=== PATIENT | female | born 1965 | race Caucasian/White ===

== ENCOUNTER → 2016-06-21 | Outpatient (CLI) | payer BC ==
--- NOTE | 2016-06-21 13:19 | USB ---
Reason for exam: clinical finding. History: Patient had first child at age 30. Family history of breast cancer in maternal aunt at age 70 and breast cancer in paternal aunt at age 80. Cyst aspiration, January 23, 2010. Cyst aspiration of the left breast, April 2009. Reductions of both breasts, 2004. 2 core biopsies. Excisional biopsy of the left breast. Took hormonal contraceptives for 10 years. Indicated problem(s): palpable abnormality in the left breast. Physical Findings: Nurse Summary: Patient states Dr. Flood did aspiration in office 6 days ago, patient presents with palpable x 2 on left and wide spread brusing to left breast painful to touch (nurse yakelin). US Breast LT Left breast ultrasound including all four quadrants, the retroareolar region and axilla demonstrates a 2mm calcified cyst at 1 o'clock, a 15 x 4 x 12mm lipoma at 3 o'clock, a 24 x 5 x 22mm hematoma fluid collection, small somewhat irregular at BB at 10 o'clock, a 22 x 6 x 17mm lipoma at 11 o'clock and a 18 x 17 x 15mm strongly shadowing, irregular tissue at 2 o'clock, likely reflects scar tissue. These results were verbally communicated with the patient and result sheet given to the patient on 06/21/16. ASSESSMENT: Probably benign, BI-RAD 3 RECOMMENDATION: Ultrasound of the left breast in 3 months. Manage patient on a clinical basis.
== END | disposition home or self-care (01) ==
LOC: RADUSWWP 11:33
PROVIDERS: ATTEND Surgery
DX: N63 Unspecified lump in breast (principal)

== ENCOUNTER → 2016-06-28 | Outpatient (CLI) | payer BC ==
--- NOTE | 2016-06-28 14:04 | MM ---
Reason for exam: follow-up at short interval from prior study. Last mammogram was performed 6 months ago. History: Patient had first child at age 30. Family history of breast cancer in maternal aunt at age 70 and breast cancer in paternal aunt at age 80. Cyst aspiration, January 23, 2010. Cyst aspiration of the left breast, April 2009. Reductions of both breasts, 2004. 2 core biopsies. Excisional biopsy of the left breast. Took hormonal contraceptives for 10 years. Physical Findings: Nurse Summary: 2cm nodule in the left breast at 11 o'clock (nurse mm). MG Diagnostic Mammo LT w CAD CC and MLO view(s) were taken of the left breast. Prior study comparison: January 05, 2016, bilateral MG 3d screening mammo w/cad. November 18, 2014, bilateral MG screening mammo w CAD. There are scattered fibroglandular densities. Density persists at site of prior aspiration. Ultrasound is recommended. These results were verbally communicated with the patient and result sheet given to the patient on 06/28/16. ASSESSMENT: Incomplete: need additional imaging evaluation, BI-RAD 0 RECOMMENDATION: Ultrasound of the left breast. Manage patient on a clinical basis.
--- NOTE | 2016-06-28 14:07 | USB ---
Reason for exam: additional evaluation requested from abnormal screening. History: Patient had first child at age 30. Family history of breast cancer in maternal aunt at age 70 and breast cancer in paternal aunt at age 80. Cyst aspiration, January 23, 2010. Cyst aspiration of the left breast, April 2009. Reductions of both breasts, 2004. 2 core biopsies. Excisional biopsy of the left breast. Took hormonal contraceptives for 10 years. US Breast Limited LT Left breast ultrasound demonstratates a 2.0 x 0.8 x 2.0cm oval lesion at 10 o'clock seen on previous, probable hematoma and a scar at 2 o'clock with shadowing, seen on previous, consistent with scarring. Undersigned was present for the examination. These results were verbally communicated with the patient and result sheet given to the patient on 06/28/16. ASSESSMENT: Probably benign, BI-RAD 3 RECOMMENDATION: Ultrasound of the left breast in 3 months. Manage patient on a clinical basis.
== END | disposition home or self-care (01) ==
LOC: RADMAMWWP 12:54
PROVIDERS: ATTEND Surgery
DX: R92.8 Other abnormal and inconclusive findings on diagnostic imaging of breast (principal)
CPT/HCPCS: 76642; G0206

== ENCOUNTER → 2016-11-26 | Outpatient (CLI) | payer BC ==
--- NOTE | 2016-11-26 12:08 | USB ---
Reason for exam: follow-up at short interval from prior study. History: Patient had first child at age 30. Family history of breast cancer in maternal aunt at age 70 and breast cancer in paternal aunt at age 80. Cyst aspiration, January 23, 2010. Cyst aspiration of the left breast, April 2009. Reductions of both breasts, 2004. 2 core biopsies. Excisional biopsy of the left breast. Took hormonal contraceptives for 10 years. Physical Findings: Nurse Summary: 1cm movable nodule in the left breast at 11 o'clock (nurse dw). US Breast LT Left breast ultrasound includes all four quadrants, the retroareolar region and axilla. Finding demonstrates a 2cm calcified cyst at 1 o'clock, a scar site from prior incisional , strong shadows at 2 o'clock, a 1.2 x 0.4 x 1.6cm oval, solid lipoma at 3 o'clock and a 2.2 x 0.7 x 1.8cm oval, solid lipoma at 10 o'clock. These results were verbally communicated with the patient and result sheet given to the patient on 11/26/16. ASSESSMENT: Benign, BI-RAD 2 RECOMMENDATION: Return to routine screening mammogram schedule for both breasts. Back on schedule.
== END | disposition home or self-care (01) ==
LOC: RADUSWWP 10:35
PROVIDERS: ATTEND Surgery
DX: R92.8 Other abnormal and inconclusive findings on diagnostic imaging of breast (principal)

== ENCOUNTER → 2017-06-27 | Outpatient (CLI) | payer BC ==
--- NOTE | 2017-06-30 11:36 | MM ---
Reason for exam: screening (asymptomatic). Last mammogram was performed 1 year ago. History: Patient had first child at age 30. Family history of breast cancer in maternal aunt at age 70 and breast cancer in paternal aunt at age 80. Cyst aspiration of the left breast, 2016. Cyst aspiration, January 23, 2010. Cyst aspiration of the left breast, April 2009. Reductions of both breasts, 2004. 2 core biopsies. Excisional biopsy of the left breast. Took hormonal contraceptives for 10 years. Physical Findings: A clinical breast exam by your physician is recommended on an annual basis and results should be correlated with mammographic findings. MG Screening Mammo w CAD Bilateral CC and MLO view(s) were taken. Prior study comparison: June 28, 2016, left breast MG diagnostic mammo LT w CAD. January 05, 2016, bilateral MG 3d screening mammo w/cad. There are scattered fibroglandular densities. Stable benign calcifications. There is no discrete abnormality. No significant changes when compared with prior studies. ASSESSMENT: Benign, BI-RAD 2 RECOMMENDATION: Routine screening mammogram of both breasts in 1 year.
== END ==
LOC: RADMAMWWP 13:40
PROVIDERS: ATTEND Family Medicine
DX: Z12.31 Encounter for screening mammogram for malignant neoplasm of breast (principal)
CPT/HCPCS: 77067

== ENCOUNTER → 2018-02-24 | Outpatient (CLI) | payer BC ==
[2018-02-24 13:56] VITALS: BP 151/97; PULSE 74; TEMP 98.1; BMI 42.4
--- NOTE | 2018-02-24 14:53 | P.HPOB ---
History of Present Illness H&P Date: 02/24/18 Chief Complaint: The patient is here for her routine gynecologic exam. This is a 52-year-old with an LMP of 2002. The patient is status post OSMAR and unilateral oophorectomy in 2002 for endometriosis. The patient has felt a small left breast lump for a number of years and had seen Dr. Sky Ferguson for this in the past. She believes the lump has gotten larger. Dr. Sky Ferguson had done some type of aspiration procedure in the past. The patient had a benign mammogram on 06/27/2017. Review of Systems Patient is getting about 23 pounds over the last 2 years. She denies respiratory or cardiac problems. GI: she is complaining of rectal and anal pruritus. She states she did have a hard bowel movement that seem to aggravate the anus. She did have a colonoscopy earlier this year. 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 She did have PCOS and endometriosis and his status post OSMAR with unilateral correct me. History of Any Multi-Drug Resistant Organisms: None Reported Past Surgical History: Adenoidectomy, Breast Surgery (Left breast biopsy and bilateral breast reduction surgery), Section (x2), Hysterectomy (OSMAR with unilateral oophorectomy in 2002), Tonsillectomy Additional Past Surgical History / Comment(s): Sinus surgery. Colonoscopy 2012 and 2017. Past Psychological History: No Psychological Hx Reported Smoking Status: Never smoker Past Alcohol Use History: Occasional (2-4 per month) Past Drug Use History: None Reported Additional History: The patient is a and has had a boyfriend. 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 - Past Family History Father Additional Family Medical History / Comment(s): Heart disease Medications and Allergies Home Medications Medication Instructions Recorded Confirmed Type Aspirin PO DAILY 02/24/18 History Ergocalciferol (Vitamin D2) 250ml.bag 02/24/18 History [Vitamin D2] Levothyroxine Sodium [Synthroid] PO DAILY 02/24/18 History Losartan [Cozaar] PO DAILY 02/24/18 History Allergies Allergy/AdvReac Type Severity Reaction Status Date / Time No Known Allergies Allergy Unverified 02/24/18 13:51 Exam Vital Signs Temp Pulse BP 02/24/18 13:54 98.1 F 74 151/97 Intake and Output 02/23/18 02/24/18 02/24/18 22:59 06:59 14:59 Other: Weight 119.295 kg Height 5'6", BMI 42.4. This is a well-developed well-nourished obese white female who is alert and oriented times 3 in no acute distress. HEENT: Within normal limits. NECK: Supple without mass or thyromegaly. CHEST AND LUNGS: Clear to auscultation. HEART: Regular rate and rhythm. BREASTS: there is a lump palpable in the left breast at approximately the 10 o' clock position near the periphery of the breast. This mass measures approximately 1.5 cm. It is on the soft side but not to fluctuant. Is nontender. There is no erythema and no breast dimpling in this area. There are no other palpable breast masses. AXILLARY EXAM: Negative for adenopathy. BACK: Negative for CVA tenderness. ABDOMEN: Soft, obese, nontender, without palpable masses. PELVIC EXAM: External genitalia appears normal. Vagina appears normal. There is no evidence of prolapse. Bimanual examination is negative for mass or tenderness. Bimanual examination is somewhat limited secondary to her size. RECTAL EXAM: Rectovaginal exam is negative for mass or tenderness and is negative for occult blood. There are no significant palpable hemorrhoids noted. EXTREMITIES: Nontender. IMPRESSION: 1. 52 year old menopausal female status post OSMAR and unilateral oophorectomy done for benign reasons with unremarkable gynecologic exam. 2. Left breast mass. Differential diagnosis will include left breast lipoma , fibrocystic changes or other breast neoplasm. 3. Anal pruritus without any significant physical findings at this time. 4. Mild urinary frequency and urgency. PLAN: 1. Pap smears have been discontinued. 2. Self breast awareness was discussed with the patient. 3. Screening mammogram was done on 06/27/2017 and was benign. The patient will be given an appointment with Dr. Sky Ferguson for further evaluation of the breast lump. 4. Anusol HC cream BID to the anus PRN for pruritus. 5. Clean catch urine for urinalysis and urine culture were obtained. 6. The patient will return in one year.
== END | disposition home or self-care (01) ==
LOC: WWCWWP 13:35
PROVIDERS: ATTEND Obstetrics & Gynecology
DX: Z53.9 Procedure and treatment not carried out, unspecified reason (principal)

== ENCOUNTER → 2022-04-22 | Outpatient (CLI) | payer BC ==
[2022-04-22 18:11] LABS: Basophils # (A) 0.04 X 10*3/uL (0.00-0.10); Basophils % (A) 0.8 %; Eosinophils # (A) 0.13 X 10*3/uL (0.04-0.35); Eosinophils % (A) 2.7 %; HCT 43.1 % (37.2-46.3); Immature Grans, Automated 0.2 %; Lymphocytes # (A) 1.92 X 10*3/uL (0.90-5.00); Lymphocytes % (A) 39.6 %; MCH 29.9 pg (27.0-32.0); MCHC 32.5 g/dL (32.0-37.0); MCV 91.9 fL (80.0-97.0); Mean Platelet Volume 10.8 fL (9.5-12.2); Monocytes # (A) 0.36 X 10*3/uL (0.20-1.00); Monocytes % (A) 7.4 %; NRBC Per 100 WBC 0 /100 WBCS (0.0-0.0); Neutrophils # (A) 2.39 X 10*3/uL (1.80-7.70); Neutrophils % (A) 49.3 %; Platelet Count 197 X 10*3/uL (140-440); RBC 4.69 X 10*6/uL (4.10-5.20); RDW 12.2 % (11.5-14.5); WBC 4.85 X 10*3/uL (4.50-10.00)
[2022-04-22 18:44] LABS: ALT 36 U/L (8-44); AST 23 U/L (13-35); African American GFR (CKD) 110.7 (60.0-200.0); Albumin 4.4 g/dL (3.8-4.9); Albumin/Globulin Ratio 1.69 (1.60-3.17); Alkaline Phosphatase 63 U/L (41-126); BUN/Creat Ratio 20.57 Ratio (12.00-20.00); Blood Urea Nitrogen 14.4 mg/dL (9.0-27.0); Calcium 9.4 mg/dL (8.7-10.3); Carbon Dioxide 26.3 mmol/L (20.0-27.5); Chloride 104 mmol/L (96-109); Chol/HDL Ratio 5.26 Ratio; Globulin 2.6 g/dL (1.6-3.3); Glucose 96 mg/dL (70-110); LDL Cholesterol,Calculated 116.8 mg/dL (0.0-131.0); Non-African American GFR(CKD) 95.5 (60.0-200.0); Potassium 4.3 mmol/L (3.5-5.5); Sodium 141 mmol/L (135-145)
== END | disposition home or self-care (01) ==
LOC: LABWHC1 11:31
PROVIDERS: ATTEND Family Medicine
DX: Z00.00 Encounter for general adult medical examination without abnormal findings (principal); I10 Essential (primary) hypertension; G47.33 Obstructive sleep apnea (adult) (pediatric); D86.0 Sarcoidosis of lung; E03.9 Hypothyroidism, unspecified; E55.9 Vitamin D deficiency, unspecified
CPT/HCPCS: 36415; 80053; 80061; 82306; 83036; 84443; 85025